=== PATIENT | female | born 1975 | race African-American/Black ===

== ENCOUNTER 2019-10-07 05:33 | Emergency (ER) | payer OTHER ==
[~2019-10-07] VITALS: Ht 162.6 cm; Wt 99.8 kg
[2019-10-07 06:17] VITALS: BP 153/89
--- NOTE | 2019-10-07 06:18 | NUR ---
ER Nurse Note: Pt walked in c/o burning sensation in head, shoulder, neck since 4 days (10/03). Pt is crying and moaning. Pt stated she does not remember the events prior to pain. No trauma, no recent travel. Pt stated she's been taking OTC meds, not effective.
--- NOTE | 2019-10-07 06:25 | Emergency Room Report ---
History of Present Illness General Chief Complaint: Pain Source: Patient (Brannon Pate MD) Present Illness HPI Patient is a 44-year-old female who presents after patient is a 44-year-old female presents after 3 days of increased left-sided neck pain and difficulty with movement. She reports having pain to the left shoulder. Patient denies any recent trauma. She reports having prior history of a pituitary tumor. Patient's pain had gradual onset initially was mild but this became gradually more severe. Patient reports being a cigarette smoker. She denies any prior cardiac history. She is taking some medication due to a pituitary tumor. She denies similar episodes in the past. She reports having severe cramping to the left side of her neck. (Brannon Pate MD) Allergies: Coded Allergies: No Known Allergies (Unverified , 10/07/19) Patient History Past Medical History: see triage record Last Menstrual Period: 08/2019 Now: No Reviewed Nursing Documentation: PMH: Agreed; PSxH: Agreed (Brannon Pate MD) Past Medical History: other - pituitary tumor (Abhishek Kern MD) Nursing Documentation-PMH Hx Hypertension: Yes (Brannon Pate MD) Review of Systems All Other Systems: negative except mentioned in HPI (Brannon Pate MD) Physical Exam Vital Signs Date Time Temp Pulse Resp B/P (MAP) Pulse Ox O2 Delivery O2 Flow Rate FiO2 10/07/19 06:09 97.9 70 20 153/89 (110) 100 Room Air General Appearance: alert, GCS 15, non-toxic, moderate distress Eyes: bilateral eye normal inspection ENT: hearing grossly normal Neck: limited range of motion Respiratory: normal inspection, chest non-tender, lungs clear, normal breath sounds Cardiovascular #1: normal inspection Gastrointestinal: normal inspection, soft Musculoskeletal: normal inspection, back normal, decreased range of motion - decreased flexion, decreased rotation, no lymphadenopathy palpable Neurologic: normal inspection, alert, oriented x3, responsive, casserole preparer III-XII nml as tested, motor strength/tone normal Psychiatric: normal inspection Skin: no rash (Brannon Pate MD) Medical Decision Making Diagnostic Impression: Primary Impression: Cervical radicular pain ER Course Patient presented for increased left-sided neck pain. Differential diagnosis include was not limited to torticollis, electrolyte abnormality, lymphadenitis, vertebral artery dissection among others. Because of complexity of patient's case laboratory tests and imaging studies were ordered.Patient is noted to have significant muscle tenderness. She was given IV pain medications. Labs Test 10/07/19 06:45 White Blood Count 6.1 K/UL (4.8-10.8) Red Blood Count 4.62 M/UL (4.20-5.40) Hemoglobin 14.0 G/DL (12.0-16.0) Hematocrit 41.6 % (37.0-47.0) Mean Corpuscular Volume 90 FL (80-99) Mean Corpuscular Hemoglobin 30.4 PG (27.0-31.0) Mean Corpuscular Hemoglobin Concent 33.8 G/DL (32.0-36.0) Red Cell Distribution Width 12.4 % (11.6-14.8) Platelet Count 365 K/UL (150-450) Mean Platelet Volume 6.0 FL (6.5-10.1) Neutrophils (%) (Auto) 60.6 % (45.0-75.0) Lymphocytes (%) (Auto) 30.5 % (20.0-45.0) Monocytes (%) (Auto) 7.8 % (1.0-10.0) Eosinophils (%) (Auto) 0.8 % (0.0-3.0) Basophils (%) (Auto) 0.4 % (0.0-2.0) Prothrombin Time 10.3 SEC (9.30-11.50) Prothromb Time International Ratio 1.0 (0.9-1.1) Activated Partial Thromboplast Time 30 SEC (23-33) Sodium Level 135 MMOL/L (136-145) Potassium Level 3.7 MMOL/L (3.5-5.1) Chloride Level 104 MMOL/L (98-107) Carbon Dioxide Level 27 MMOL/L (21-32) Anion Gap 4 mmol/L (5-15) Blood Urea Nitrogen 7 mg/dL (7-18) Creatinine 0.8 MG/DL (0.55-1.30) Estimat Glomerular Filtration Rate > 60 mL/min (>60) Glucose Level 128 MG/DL (74-106) Calcium Level 8.4 MG/DL (8.5-10.1) Total Bilirubin 0.3 MG/DL (0.2-1.0) Aspartate Amino Transf (AST/SGOT) 13 U/L (15-37) Alanine Aminotransferase (ALT/SGPT) 22 U/L (12-78) Alkaline Phosphatase 89 U/L (46-116) Troponin I 0.000 ng/mL (0.000-0.056) Total Protein 7.1 G/DL (6.4-8.2) Albumin 3.4 G/DL (3.4-5.0) Globulin 3.7 g/dL Albumin/Globulin Ratio 0.9 (1.0-2.7) Thyroid Stimulating Hormone (TSH) 1.943 uiU/mL (0.358-3.740) Human Chorionic Gonadotropin, Qual Negative (NEGATIVE) (Brannon Pate MD) ER Course Please see above note. Patient somewhat improved after analgesia. Awaiting imaging and labs. Repeat morphine given. Call to stat rad for reading of CTA. Still pending at 10:00 CTA with nerve root compression C3-[address] findings with patient. Also discussed treatment plan. Improved pain. Normal distal neurovascular left shoulder and forearm. Patient stable for outpatient observation and treatment. (Abhishek Kern MD) EKG Diagnostic Results Rate: normal Rhythm: NSR ST Segments: no acute changes (Brannon Pate MD) CT/MRI/US Diagnostic Results CT/MRI/US Diagnostic Results : Imaging Test Ordered: CTA neck Impression 1. Unremarkable CTA neck. 2. C3-4 Left paracentral protrusion with moderate effacement of the left anterior thecal sac and moderate to severe left neural foraminal narrowing, may be touching the exiting nerve root. . 3. C4-5 central disc protrusion with moderate effacement of anterior thecal sac. 4. C5-6 left paracentral disc protrusion. 5. 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 (Abhishek Kern MD) Last Vital Signs Date Time Temp Pulse Resp B/P (MAP) Pulse Ox O2 Delivery O2 Flow Rate FiO2 10/07/19 06:17 97.9 70 20 153/89 100 Room Air (Brannon Pate MD) Last Vital Signs Date Time Temp Pulse Resp B/P (MAP) Pulse Ox O2 Delivery O2 Flow Rate FiO2 10/07/19 11:20 97.2 76 18 126/86 100 Room Air Status: improved (Abhishek Kern MD) Disposition: HOME, SELF-CARE Condition: Improved Scripts Methocarbamol* (ROBAXIN-500*) 500 Mg Tablet 500 MG ORAL TID PRN for For Pain, #10 TAB 0 Refills Prov: Abhishek Kern MD 10/07/19 Hydrocodone Bit/Acetaminophen 5-325* (NORCO 5-325*) 1 Each Tablet 1 TAB ORAL Q6H PRN for For Pain, #10 TAB 0 Refills Prov: Abhishek Kern MD 10/07/19 Ibuprofen* (MOTRIN*) 600 Mg Tablet 600 MG ORAL Q6H PRN for For Pain, #20 TAB 0 Refills Prov: Abhishek Kern MD 10/07/19 Brannon Pate MD Oct 07, 2019 06:25 Abhishek Kern MD Oct 07, 2019 07:05
[2019-10-07] MEDS ORDERED: Morphine Sulfate 4mg/ml Inj (IV USE ONLY) IVP ONE ×2 (06:45→08:45)
[2019-10-07] MEDS ORDERED: Omnipaue 350mg/ml 100ml vial INJ PRN (06:45)
[2019-10-07 07:12] LABS: ANION GAP 4 mmol/L (5-15); BLOOD UREA NITROGEN 7 mg/dL (7-18); CALCIUM 8.4 MG/DL (8.5-10.1); CARBON DIOXIDE 27 MMOL/L (21-32); CHLORIDE 104 MMOL/L (98-107); CREATININE 0.8 MG/DL (0.55-1.30); POTASSIUM 3.7 MMOL/L (3.5-5.1); SODIUM 135 MMOL/L (136-145)
[2019-10-07 07:15] LABS: BASOPHILS % (AUTO) 0.4 % (0.0-2.0); EOSINOPHILS % (AUTO) 0.8 % (0.0-3.0); HEMATOCRIT 41.6 % (37.0-47.0); LYMPHOCYTES % (AUTO) 30.5 % (20.0-45.0); MEAN CORPUSCULAR VOLUME 90 FL (80-99); MONOCYTES % (AUTO) 7.8 % (1.0-10.0); NEUTROPHILS % (AUTO) 60.6 % (45.0-75.0); PLATELET COUNT 365 K/UL (150-450); RED BLOOD COUNT 4.62 M/UL (4.20-5.40); RED CELL DISTRIBUTION WIDTH 12.4 % (11.6-14.8); WHITE BLOOD COUNT 6.1 K/UL (4.8-10.8)
--- NOTE | 2019-10-07 07:17 | NUR ---
HAND-OFF: Report given to ALFREDO Campbell.
--- NOTE | 2019-10-07 07:20 | NUR ---
ED Nurse Note: received report from ALFREDO wong and assumed care, pt sleeping at this time, safety measures in place, will cont monitor.
[2019-10-07 07:25] LABS: ALANINE AMINOTRANSFERASE 22 U/L (12-78); ALBUMIN 3.4 G/DL (3.4-5.0); ALBUMIN/GLOBULIN RATIO 0.9 (1.0-2.7); ALKALINE PHOSPHATASE 89 U/L (46-116); ASPARTATE AMINO TRANSFERASE 13 U/L (15-37); BILIRUBIN,TOTAL 0.3 MG/DL (0.2-1.0)
--- NOTE | 2019-10-07 08:09 | NUR ---
ED Nurse Note: pt off to CT accompanied by radiology transporter.
--- NOTE | 2019-10-07 08:37 | NUR ---
ED Nurse Note: pt returned from CT, ambulated to restroom and void x 1, pt reports pain on the neck area, throbbing and tight sensation, ERMD notified, pt provided w/ warm blanket for comfort, pt advised to notify staff if needed assist, safety measures in place.
--- NOTE | 2019-10-07 10:27 | Diagnostic Imaging Report ---
EXAM: CT Angiography Neck With Intravenous Contrast CLINICAL HISTORY: PAIN TECHNIQUE: Axial computed tomographic angiography images of the neck with intravenous contrast. CTDI is 26.3 mGy and DLP is 848.1 mGy-cm. One or more of the following dose reduction techniques were used: automated exposure control, adjustment of the mA and or kV according to patient size, use of iterative reconstruction technique. MIP reconstructed images were created and reviewed. Coronal and sagittal reformatted images were created and reviewed. COMPARISON: No relevant prior studies available. FINDINGS: VASCULATURE: Right common carotid artery: Unremarkable. No significant stenosis. No dissection or occlusion. Right internal carotid artery: Unremarkable. Extracranial segment is patent with no significant stenosis. No dissection or occlusion. Right external carotid artery: Unremarkable. No occlusion. Right vertebral artery: Unremarkable. No significant stenosis. No dissection or occlusion. Left common carotid artery: Unremarkable. No significant stenosis. No dissection or occlusion. Left internal carotid artery: Unremarkable. Extracranial segment is patent with no significant stenosis. No dissection or occlusion. Left external carotid artery: Unremarkable. No occlusion. Left vertebral artery: Unremarkable. No significant stenosis. No dissection or occlusion. NECK: Bones joints: C3-4 Left paracentral protrusion with moderate effacement of the left anterior thecal sac and moderate to severe left neural foraminal narrowing, may be touching the exiting nerve root. C4-5 central disc protrusion with moderate effacement of anterior thecal sac. C5-6 left paracentral disc protrusion. No acute fracture. No dislocation. Soft tissues: Unremarkable as visualized. No mass. Sinuses: Mild paranasal sinus mucosal thickening. 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 Other findings: CAROTID STENOSIS REFERENCE USING NASCET CRITERIA: % ICA stenosis = (1 - narrowest ICA diameter diameter of distal cervical ICA) x 100. Mild - <50% stenosis. Moderate - 50-69% stenosis. Severe - 70-94% stenosis. Near occlusion - 95-99% stenosis. Occluded - 100% stenosis. IMPRESSION: 1. Unremarkable CTA neck. 2. C3-4 Left paracentral protrusion with moderate effacement of the left anterior thecal sac and moderate to severe left neural foraminal narrowing, may be touching the exiting nerve root. . 3. C4-5 central disc protrusion with moderate effacement of anterior thecal sac. 4. C5-6 left paracentral disc protrusion. 5. 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
[2019-10-07] MEDS ORDERED: Ketorolac 30mg Inj IV ONE (10:45)
[2019-10-07] MEDS ORDERED: NORCO 5-325 TA1 EACH ORAL (10:45)
[2019-10-07] MEDS ORDERED: ROBAXIN-500MG ORAL (10:45)
[2019-10-07] MEDS ORDERED: oxyCODONE HCL/Acetaminophen 5/325mg ORAL ONE (10:45)
[2019-10-07] MEDS ORDERED: IBUPROFEN600 MG ORAL (10:45)
[2019-10-07 11:20] VITALS: BP 126/86
--- NOTE | 2019-10-07 11:20 | NUR ---
ED Nurse Note: pt cleared to be d/c per ermd, pt discharge and aftercare instruction provided w/ prescription, pt education done via discussion and handout, pt advised to follow up with pcp or return to ed if changes in condition, pt verbalized understanding and agrees with plan of care, vss, ambulatory w/ steady gait, iv d/c and id band removed, pt left w/ all belongings.
--- NOTE | 2019-10-09 17:08 | Cardiology Report ---
APPROVED REPORT EKG Measurement Heart [id number] ND [id number] Normal sinus rhythm Normal ECG
== END 2019-10-07 11:20 | disposition home or self-care (01) ==
LOC: EMR 06:30
DX: M54.2 Cervicalgia (principal); F17.210 Nicotine dependence, cigarettes, uncomplicated; I10 Essential (primary) hypertension; M50.220 Other cervical disc displacement, mid-cervical region, unspecified level
CPT/HCPCS: 36415; 70498; 80053; 84443; 84484; 84703; 85025; 85610; 85730; 93005; 96374; 96375; 96376; 99284; J1885; J2270; J2405; Q9967